=== PATIENT | female | born 1990 | race Caucasian/White ===

== ENCOUNTER 2022-03-26 07:47 | Outpatient (CLI) | payer OTHER, SELFPAY ==
[2022-03-26 14:24] LABS: Chlamydia DNA Amplified* NOT DETECTED (No Detected); GC DNA Amplified* NOT DETECTED (No Detected)
== END 2022-03-26 07:48 | disposition home or self-care (01) ==
PROVIDERS: PCP Nurse Practitioner Family; Visit Provider Family Medicine
DX: R30.0 Dysuria (principal); R39.89 Other symptoms and signs involving the genitourinary system; N89.8 Other specified noninflammatory disorders of vagina
CPT/HCPCS: 87086; 87491; 87591

== ENCOUNTER 2022-05-09 08:35 | Outpatient (CLI) | payer OTHER, SELFPAY ==
--- OUTSIDE RECORDS SUMMARY | 2022-05-09 08:37 | XMS_ITS | Encounter Summary ---
:1990 Author Organization [email or web address] [employer] [facility] Address [address] [address] Phone Care Team Providers Name Role Phone Unavailable Primary Care Provider Unavailable Reason for Visit Reason Comments UTI Reoccurring UTI this episode started this AM dysuria, frequency. Has used Macrobid and bactrim in the past and gets nauseated would like Zofran along with antibiotic. Encounter Details Date Type Department Care Team Description 04/27/2022 [facility]stitis without hematuria (Primary Dx); [facility] Loyda Katz APRN, S ymptoms of urinary tract infection [facility] [address] [address] [place] [address] [place] [address] [phone] (Wo rk) Social History Tobacco Use Types Packs/Day Years Used Date Never Smoker Smokeless Tobacco: Never Used Sex Assigned at Date Recorded Not on file Job Start Date Occupation Industry Not on file Not on file Not on file COVID-19 Exposure Response Date Recorded In the last 10 days, have you been in contact with No / Unsu re 04/27/2022 1:51 PM CDT someone who was confirmed or suspected to have Coronavirus/COVID-19? documented as of this encounter Last Filed Vital Signs Vital Sign Reading Time Taken Comments Blood Pressure 110/73 04/27/2022 3:27 PM CDT Pulse 105 04/27/2022 3:27 PM CDT Temperature 37.4 ??C (99.4 ??F) 04/27/2022 3:27 PM CDT Respiratory Rate 18 04/27/2022 3:27 PM CDT Oxygen Saturation 97% 04/27/2022 3:27 PM CDT Inhaled Oxygen Concentration - - Weight 54.3 kg (119 lb 11.4 oz) 04/27/2022 3:27 PM CDT Height - - Body Mass Index - - documented in this encounter Ordered Prescriptions Prescription Sig Dispensed Refills Start Date End Date ondansetron (Zofran ODT) 4 Take 1 Tablet by 12 Tablet 0 10/2021 MG disintegrating tablet mouth every eight hours as needed for Nausea. nitrofurantoin, Take 1 Capsule by 14 Capsule 0 04/27/2022 macrocrystal-monohydrate, mouth two times a (Macrobid) 100 MG capsule day (breakfast and supper) for 7 days. Take with food or milk. ondansetron (Zofran ODT) 4 Take 1 Tablet by 12 Tablet 0 10/202104/27/2022 MG disintegrating tablet mouth every eight hours as needed for Nausea. nitrofurantoin, Take 1 Capsule by 14 Capsule 0 04/27/2022 macrocrystal-monohydrate, mouth two times a (Macrobid) 100 MG capsule day (breakfast and supper) for 7 days. Take with food or milk. documented in this encounter Progress Notes Loyda Kraus APRN, LINDA - 04/27/2022 2:00 PM CDT S: Shauna Higginbotham is a 31 year old female who presents to urgent care with concern for UTI. Patienthas had urgency, frequency and pain with urination for 1 day(s) and getting worse. Denies fever, nausea, vomiting, back pain or bloody urine. No LMP recorded. (Menstrual status: Medication).. Patient is not currently . denies concerns or symptoms of STD's. denies vaginal infection symptoms. There is history of frequent UTIs. Patient has not been treated with antibiotics recently. Has tried the following remedies: none. patient states she gets nausea with antibiotics and requests rxfor zofran to take with antibiotics. History reviewed. No pertinent past medical history. Social History Tobacco Use ??? Smoking status: Never Smoker ??? Smokeless tobacco: Never Used Substance Use Topics ??? Alcohol use: Not on file No family history on file. Pertinent review of systems done and negative except for HPI. O: Vitals: 04/27/22 1527 BP: 110/73 Pulse: 105 Temp: 37.4 ??C (99.4 ??F) TempSrc: Tympanic Resp: 18 Weight: 119 lb 11.4 oz (54.3 kg) SpO2: 97% General: WDWN, alert and oriented, NAD. Responds to questions appropriately. Skin: color pink, skin warm and dry. There are no visible rashes. Hydration: mucus membranes pink and moist, skin turgor normal GI: Flat, soft with no apparent tenderness, hepatosplenomegaly or palpable masses and BS normal : No CVA tenderness UA: See lab tab (N30.00) Acute cystitis without hematuria (primary encounter diagnosis) (R39.9) Symptoms of urinary tract infection Plan: URINALYSIS, REFLEX TO CULTURE, URINALYSIS, REFLEX TO CULTURE, URINE MICROSCOPIC EXAMINATION, CULTURE, URINE Recent Results (from the past 12 hour(s)) URINALYSIS, REFLEX TO CULTURE Specimen: Urine CVMS Result Value Ref Range Urine Color Yessica Straw, Yellow, Yessica Urine Appearance Cloudy (A) Clear Urine Specific [place] 1.020 1.003 - 1.035 Urine pH 8.5 (A) 5.0 - 8.0 Urine Glucose Negative Negative Urine Ketones 40 (A) Negative Urine Protein 30 (A) Negative, Trace mg/dL Urine Nitrites Negative Negative Urine Leukocyte Esterase Small (A) Negative URINE MICROSCOPIC EXAMINATION Result Value Ref Range Urine WBC's 20-30 (A) 0 - 8 /HPF Urine RBC's 100+ (A) 0 - 3 /HPF Urine Bacteria Occasional (A) None Seen /HPF Urine Squamous Epithelial Cells Rare /HPF Narrative Urine Culture has been ordered. 1. Instructed patient to increase fluid intake to 80 oz per day 2. AZO over the counter three times per day, or pyridium 200 mg three times per day (prescription) for three days as needed for pain-this will cause urine to turn orange. 3. Macrobid 100 mg orally twice daily for 7 days for infection. Will call in 2 days if we need to change antibiotics based on urine culture results 4. If any fever, back pain, n/v, worsening symptoms patient agrees to seek immediate medical attn. Otherwise will fu as needed. 5. zofran 4 mg every 8 hours as needed for nausea and vomiting documented in this encounter Plan of Treatment Not on filedocumented as of this encounter Procedures Procedure Name Priority Date/Time Associated Comments Diagnosis CULTURE, URINE Routine 04/27/2022 3:16 PM Symptoms of urinary Results for this CDT tract infection procedure ar e in the results section. URINE MICROSCOPIC Routine 04/27/2022 3:16 PM Symptoms of urina ry Results for this EXAMINATION CDT tract infection procedure ar e in the results section. URINALYSIS, REFLEX TO Routine 04/27/2022 3:16 PM Symptoms of u rinary Results for this CULTURE CDT tract infection procedure ar e in the results section. 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 [place] [address] (ABNORMAL) URINE MICROSCOPIC EXAMINATION (04/27/2022 3:16 PM CDT) [facility] Method Time Signature Urine WBC's 20-30 (A) 0 - 8 04/27/[address] /HPF 3:48 PM CDT [facility] Urine RBC's 100+ (A) 0 - 3 04/27/[address] /HPF 3:48 PM CDT [facility] Urine Bacteria Occasional (A) None Seen 04/27/[address] /HPF 3:48 PM CDT [facility] Urine Squamous Rare /HPF 04/27/[address] Epithelial 3:48 PM CDT [facility] Specimen Anatomical Collection Method Collection Time Receive d Time (Source) Location / / Volume Laterality Urine AIRCRAFT SKIN BURNISHER Non-blood 04/27/2022 3:16 PM 04/27/20 3:25 MID-STREAM URINE collection / CDT PM CDT SPECIMEN OBTAINED Unknown BY CLEAN CATCH PROCEDURE / Unknown Narrative [facility] RY - 04/27/2022 3:48 PM CDT Urine Culture has been ordered. Loyda Kraus APRN, CNP [facility] URINE ORDERABLES Performing Organization Address City/State/ZIP Code Phon e Number [facility] [address] [place], [place] [address] LABORATORY (ABNORMAL) URINALYSIS, REFLEX TO CULTURE (04/27/2022 3:16 PM CDT) [facility] Method Time Signature Urine Color Yessica Straw, 04/27/2022 ST. Yellow, 3:48 PM CDT [facility] Yessica [facility]OR[facility]ORY Urine Cloudy (A) Clear 04/27/2022 ST. Appearance 3:48 PM T [facility] Urine Specific 1.020 1.003 - 04/27/2022 ST[address] [place] 1.035 3:48 PM [facility] Urine pH 8.5 (A) 5.0 - 8.0 04/27/2022 ST. 3:48 PM T [facility] Urine Glucose Negative Negative 04/27/2022 ST. 3:48 PM [facility] Urine Ketones 40 (A) Negative 04/27/2022 ST. 3:48 PM CDT [facility] Urine Protein 30 (A) Negative, 04/27/2022 ST. Trace mg/dL 3:48 PM CDT [facility] Urine Nitrites Negative Negative 04/27/2022 ST. 3:48 PM T [facility] Urine Small (A) Negative 04/27/2022 ST. Leukocyte 3:48 PM T [facility] Esterase [facility] LABORATORY Specimen Anatomical Collection Method Collection Time Receive d Time (Source) Location / / Volume Laterality Urine AIRCRAFT SKIN BURNISHER Non-blood 04/27/2022 3:16 PM 04/27/20 22 3:25 MID-STREAM URINE collection / CDT PM CDT SPECIMEN OBTAINED Unknown BY CLEAN CATCH PROCEDURE / Unknown Loyda Kraus APRN, CNP [facility] URINE ORDERABLES Performing Organization Address City/State/ZIP Code Phon e Number [facility] [address] [place] [address] LABORATORY documented in this encounter Visit Diagnoses Diagnosis Acute cystitis without hematuria - Prima ry Acute cystitis Symptoms of urinary tract infection documented in this encounter Discontinued Medications Medication Sig Discontinue Reason Start Date End Date nitrofurantoin, Take 1 Capsule by Reorder 04/27/2022 022 macrocrystal-monohydrate, mouth two times a (Macrobid) 100 MG capsule day (breakfast and supper) for 7 days. Take with food or milk. ondansetron (Zofran ODT) 4 Take 1 Tablet by Reorder 04/27/2022 04/27/2022 MG disintegrating tablet mouth every eight hours as needed for Nausea. documented as of this encounter
--- OUTSIDE RECORDS SUMMARY | 2022-05-09 08:37 | XMS_ITS | Clinical Summary ---
:1990 Author Organization [facility] [place] [address] Care Team Providers Name Role Phone Dominga Kemp Primary Care Provider [phone] Allergies No known active allergies Medications Medication Sig Dispensed Refills Start Date End Date Status metroNIDAZOLE 0.75% Insert 1 1 Tube 0 01/17/2016 Active vaginal (METROGEL Applicatorful into VAGINAL) 0.75 % the vagina at vaginal bedtime. gelIndications: Bacterial vaginitis sertraline (ZOLOFT) TAKE 1 TABLET BY 15 tablet 0 05/09/2016 Active 100 mg MOUTH ONCE DAILY. tabletIndications: Depression with anxiety OLIVIA, 28, 3-0.02 TAKE ONE TABLET BY 84 tablet 0 03/16/2017 Active mg MOUTH ONE TIME DAILY tabletIndications: Irregular menstrual cycle Active Problems Problem Noted Date Irregular menstrual cycle 06/29/2014 Depression with anxiety 05/22/2012 Other acne 05/22/2012 Immunizations Name Administration Dates Next Due Human Papilloma Virus Vaccine 10/26/2008, 03/16/2008, 2007 Influenza, IIV3 (Age >=3 years) 05/22/2012 Influenza, IIV4 06/29/2014 Tdap 11/19/2012, 06/29/2003 Family History Medical History Relation Name Comments Other Brother brain injury Psychiatric illness Brother OCD, depress ion, eating disorder Asthma Father Stroke Father Cancer-colon Maternal Grandfather 1 Hyperlipidemia Maternal Grandfather 2 Hyperlipidemia Maternal Grandmother Psychiatric illness Mother depression Diabetes Other maternal great g randma Cancer-breast No Family History Heart Disease No Family History Relation Name Status Comments Brother Father Maternal Grandfather 1 Maternal Grandfather 2 Maternal Grandmother Mother Other Social History Tobacco Use Types Packs/Day Years Used Date Never Smoker Smokeless Tobacco: Never Used Tobacco Cessation: Counseling Given: Yes Alcohol Use Standard Drinks/Week Comments Yes 0 (1 standard drink = 0.6 oz pure alcoho l) once a month Alcohol Habits Answer Date Recorded How often do you have a drink containing alcohol? Not asked How many drinks containing alcohol do you have on a Not aske d typical day when you are drinking? How often do you have six or more drinks on one occasion? No t asked Comment: once a month 06/29/2014 Sex Assigned at Date Recorded Not on file Obstetrics History Para Term AB IAB SAB Ectopic Multiple Living Live Births 0 0 0 0 0 0 0 0 0 0 Last Filed Vital Signs Vital Sign Reading Time Taken Comments Blood Pressure 109/74 01/17/2016 8:12 AM CDT tower Pulse 82 01/17/2016 8:12 AM CDT Temperature 36.7 ??C (98 ??F) 01/17/2016 8:12 AM CDT Respiratory Rate 18 02/09/2015 3:07 PM CDT Oxygen Saturation 100% 01/17/2016 8:12 AM CDT Inhaled Oxygen Concentration - - Weight 60.8 kg (134 lb) 01/17/2016 8:12 AM CDT Height 164 cm (5' 4.57) 01/17/2016 8:12 AM CDT Body Mass Index 22.6 01/17/2016 8:12 AM CDT Plan of Treatment Health Maintenance Due Date Last Done Comments COVID-19 vaccine series (#1) 06/27/1991 Hepatitis C screening for age 0512/25/2008 18-79 BMI (ht and wt on same day) for 01/16/2017 01/17/2016, 03/2016 age 18+ Depression screening for age 12+ 01/16/2017 01/17/2016, Influenza for age 9-49 04/25/2022 06/29/2014, 05/22/2012 Tetanus booster 11/19/2022 11/19/2012, 06/29/2003, 06/29/2003 Pap test for age 21-65 09/11/2024 09/11/2021, 09/11/2021, 01/30/2017, Additional history exists Tdap Completed 11/19/2012, 06/29/2003 Results Not on filefrom Last 3 Months Insurance Payer Benefit Plan / Subscriber ID Effective Dates Phone Addre ss Type Group BLUE [employer]OSS [employer] OF [id number] 2015-Present [address] [place] [address] [facility] [facility] Employ[facility] 08/25/2000 ATTN: [facility] (Home) [place] [address] [facility] [place] [address] Care Teams Counter Weigher Relationship Specialty Start Date End Date Dominga Kemp PA PCP - General Family Practice 06/27/[address] [place] [address]
--- OUTSIDE RECORDS SUMMARY | 2022-05-09 08:37 | XMS_ITS | Encounter Summary ---
:1990 Author Organization [employer] Address [address] [address] Phone Care Team Providers Name Role Phone Unavailable Primary Care Provider Unavailable Encounter Details Date Type Department Care Team Description 04/27/2022 Travel Social History Tobacco Use Types Packs/Day Years [...] have Coronavirus/COVID-19? documented as of this encounter Plan of Treatment Not on filedocumented as of this encounter Visit Diagnoses Not on filedocumented in this encounter
[2022-05-09 15:31] LABS: Chlamydia DNA Amplified* Not Detected (No Detected); GC DNA Amplified* Not Detected (No Detected)
== END 2022-05-09 08:36 | disposition home or self-care (01) ==
PROVIDERS: PCP Nurse Practitioner Family; Visit Provider Nurse Practitioner Family
DX: J02.9 Acute pharyngitis, unspecified (principal); N93.8 Other specified abnormal uterine and vaginal bleeding
CPT/HCPCS: 87070; 87491; 87591

== ENCOUNTER 2022-09-19 15:44 | Outpatient (CLI) | payer OTHER, SELFPAY ==
[2022-09-19 21:48] LABS: Basophils Absolute Auto 0.03 K/uL (0.00-0.30); Basophils Percent Auto 0.6 % (0.0-3.0); Eosinophils Absolute Auto 0.04 K/uL (0.00-0.50); Eosinophils Percent Auto 0.8 % (0.0-7.0); Hematocrit 40.9 % (33.0-51.0); Hemoglobin* 13.4 gm/dL (12.0-16.0); Mean Corpuscular HGB Conc 33 gm/dL (32-36); Mean Corpuscular Hemoglobin 29 pg (26-34); Mean Corpuscular Volume 88 fL (80-100); Neutrophils Percent Auto 33.6 % (42.0-72.0); Platelet Count* 253 K/uL (140-440); RDW Coefficient of Variation % 12.2 % (11.5-15.5); Red Blood Count 4.64 m/uL (4.00-5.20); White Blood Count* 4.98 K/uL (4.50-11.00)
[2022-09-19 21:58] LABS: Slide Review Reflex No
== END 2022-09-19 15:45 | disposition home or self-care (01) ==
PROVIDERS: PCP Nurse Practitioner Family; Visit Provider Nurse Practitioner Family
DX: R10.9 Unspecified abdominal pain (principal)
CPT/HCPCS: 85025; 87086

== ENCOUNTER 2022-09-30 18:06 | Emergency (ER) | payer OTHER, SELFPAY ==
[2022-09-30 18:20] VITALS: BP 109/75; PULSE 120; RESP 16; TEMP 36.7; O2SAT 93; BMI 20.9
--- NOTE | 2022-09-30 19:57 | ED_ITS ---
HPI - Extremity Injury (Upper) General Chief Complaint: Extremity Pain/Injury, Upper Stated Complaint: Infection in right hand Time Seen by Provider: 09/30/22 18:26 History of Present Illness HPI narrative: This 31-year-old female comes in with an injury to her right thenar muscle. She was presenting to urgent care and was sent here because of some redness around this area. She accidentally stabbed into her right thumb yesterday with a Anthony screwdriver. She received a tetanus shot. She is currently on cefdinir for recurrent strep infections. She states that her sore throat is improved but still has some pain. She reports upset stomach with taking this medicine. She reports that she has been on antibiotics several times over the past year to treat strep infection and urinary tract infections. She did see a sustainable agriculture specialist to prescribe cefdinir for 3 weeks and states that he will take her tonsils out if she would like this done. She has a puncture wound on the palmar aspect of the muscle in her right thumb. There is no sign of drainage. She does have some erythema extending around the area of the thenar muscle on both the palmar and dorsal aspect. There is some very faint redness that is extending up toward her wrist. This was what was generating a concern and recommendation to come here for further evaluation and treatment. Related Data Home Medications Medication Instructions Recorded Confirmed cefdinir 300 mg capsule 600 mg PO 09/19/22 09/19/22 Previous Rx's Medication Instructions Recorded drospirenone 3 mg-ethinyl 1 tab PO QDAY 90 days #84 tabs 03/14/22 estradiol 0.02 mg tablet (EBONY (28)) sulfamethoxazole 800 1 tab PO BID #20 tabs 09/30/22 mg-trimethoprim 160 mg tablet (Bactrim DS) Allergies Allergy/AdvReac Type Severity Reaction Status Date / Time citalopram Allergy Mild Nausea Verified 09/30/22 17:16 Review of Systems Status of ROS: Reports: 10 or more systems reviewed and unremarkable except as noted in History and below Narrative: Constitutional: No fevers, no weight gain or loss. Eyes: No discharge. No vision changes. HENT: No congestion, no ear pain. Sore throat is described above. Cardiovascular: No chest pain, no palpitations. Respiratory: No shortness of breath, no wheezes, no cough. Gastrointestinal: No abdominal pain, no vomiting, no diarrhea. Genitourinary: No dysuria, no hematuria. Musculoskeletal: Normal range of motion. Right thumb injury as described above. Skin: No rashes, no pruritis. Neurological: No dizziness, weakness, sensory change, speech change. Endo/Heme/Allergies: No bruising or bleeding. No polydipsia. Pysch: no suicidality, no anxiety, no insomnia. All other systems reviewed and are negative. 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 HEENT: Normocephalic, atraumatic. Neck: Normal range of motion. Nontender. Supple. Heart: Regular. No murmurs. Normal rate. Intact distal pulses. Lungs: Clear to auscultation. No chest discomfort. No wheezes, rhonchi, or rales. Abdomen: Normal bowel sounds. Nontender. No rebound tenderness. Genitalia: Deferred. Back: No midline tenderness. Normal range of motion. Extremities: Normal range of motion. Puncture wound on the palmar aspect of the right thenar muscle. There is no drainage. There is some surrounding erythema approximately 6 cm in diameter. Skin: Intact. No rash. Warm. No erythema or pallor. Neurologic: No altered sensation. No weakness. Alert and oriented. Psychiatric: No suicidality. No anxiety or depression. No insomnia. Nursing notes and vitals signs are reviewed. Const: Vital Signs, click to edit/add: Vital Signs - 24 hr 09/30/22 18:20 Temperature 98.1 F Pulse Rate [Pulse Oximeter] 120 H Respiratory Rate 16 Blood Pressure [Ri ght Upper Arm] 109/75 Pulse Oximetry 93 Oxygen Delivery Me thod Room Air Course Vital Signs Vital signs: Initial Vital Signs Temperature 98.1 F 09/30/22 18:20 Temperature Source Temporal Artery Scan 09/30/22 18:20 Pulse Rate 120 H 09/30/22 18:20 Pulse Rhythm 09/30/22 18:20 Pulse Strength 3+ Normal 09/30/22 18:20 Respiratory Rate 16 09/30/22 18:20 Blood Pressure 109/75 09/30/22 18:20 Blood Pressure Mean 86 09/30/22 18:20 Blood Pressure Position Sitting 09/30/22 18:20 Pulse Oximetry 93 09/30/22 18:20 Oxygen Delivery Method 09/30/22 18:20 Vital Signs Temperature 98.1 F 09/30/22 18:20 Pulse Rate 120 H 09/30/22 18:20 Respiratory Rate 16 09/30/22 18:20 Blood Pressure 109/75 09/30/22 18:20 Pulse Oximetry 93 09/30/22 18:20 Oxygen Delivery Method 09/30/22 18:20 Temperature 98.1 F 09/30/22 18:20 Pulse Rate 120 H 09/30/22 18:20 Respiratory Rate 16 09/30/22 18:20 Blood Pressure 109/75 09/30/22 18:20 Pulse Oximetry 93 09/30/22 18:20 Oxygen Delivery Method 09/30/22 18:20 MDM - Extremity Injury (Upper) MDM Narrative Medical decision making narrative: This patient has an injury to her right thumb as described above. The concern here is that she may have an infection in this wound despite being on cefdinir. I explained that there is no real test to verify this unless we were able to get fluid from the wound. I did use bedside ultrasound to evaluate for some source of drainable fluid. There was no sign of abscess in this wound. I explained to the patient that this may be her body's reaction to the injury itself and may not in fact be a sign of infection. But in abundance of caution she did have an IV established and labs were drawn. She did receive an IV dose of Levaquin. Her white count returns normal as does her C reactive protein. She has normal vital signs. She is complaining of stomach discomfort that she attributes to the antibiotic. I stated that as she has been on cefdinir now for 2 weeks she may consider discontinuing this if the adverse effects are more troubling than its benefit. She did receive a prescription for Bactrim. Between these treatments her possibility of infection in her hand should be adequately addressed. I did describe signs and symptoms that would indicate a need for return and re-evaluation. Lab Data Labs: Lab Results 09/30/22 09/30/22 Range/Units 20:00 20:00 WBC 9.09 (4.50-11.00) K/uL RBC 4.16 (4.00-5.20) m/uL Hgb 12.2 (12.0-16.0) gm/dL Hct 37.1 (33.0-51.0) % MCV 89 (80-100) fL MCH 29 (26-34) pg MCHC 33 (32-36) gm/dL RDW Coeff of Steven 12.1 (11.5-15.5) % Plt Count 241 (140-440) K/uL Neut % (Auto) 53.5 (42.0-72.0) % Lymph % (Auto) 37.7 (20-44) % [place] % (Auto) 7.4 (0.0-11.0) % Eos % (Auto) 1.1 (0.0-7.0) % Baso % (Auto) 0.3 (0.0-3.0) % Neut # (Auto) 4.86 (1.7-7.0) K/uL Lymph # (Auto) 3.43 H (0.90-2.90) K/uL [place] # (Auto) 0.70 (0.00-0.90) K/UL Eos # (Auto) 0.10 (0.00-0.50) K/uL Baso # (Auto) 0.03 (0.00-0.30) K/uL Sodium 138 (135-149) mmol/L Potassium 3.5 L (3.6-5.1) mmol/L Chloride 106 (96-114) mmol/L Carbon Dioxide 25 (20-32) mmol/L BUN 10 (5-24) mg/dL Creatinine 0.6 (0.5-1.5) mg/dL Estimated Creat Clear 117.31 Estimated GFR 123 ml/min Glucose 83 (60-115) mg/dL Calcium 8.9 (8.4-10.6) mg/dL C-Reactive Protein < 0.5 L (0.5-1.0) mg/dL Discharge Plan Discharge Clinical Impression: Puncture wound of hand Patient Disposition: Home, Self-Care Condition: Stable Additional Instructions: Take medication as prescribed. Follow up with MD as needed or scheduled. Return if worsening symptoms happen. Prescriptions: New sulfamethoxazole-trimethoprim [Bactrim DS] 800-160 mg tablet 1 tab PO BID Qty: 20 0RF No Action cefdinir 300 mg capsule 600 mg PO drospirenone-ethinyl estradiol [EBONY (28)] 3-0.02 mg tablet 1 tab PO QDAY 90 Days Qty: 84 3RF Follow Up/Referrals: Loyda Ferrer, AUDIE, [facility] [Primary Care Provider] - Stand Alone Forms: vSocial Info Instructions
[2022-09-30 20:17] LABS: Basophils Absolute Auto 0.03 K/uL (0.00-0.30); Basophils Percent Auto 0.3 % (0.0-3.0); Eosinophils Percent Auto 1.1 % (0.0-7.0); Hematocrit 37.1 % (33.0-51.0); Hemoglobin* 12.2 gm/dL (12.0-16.0); Lymphocytes Absolute Auto 3.43 K/uL (0.90-2.90); Lymphocytes Percent Auto 37.7 % (20-44); Mean Corpuscular HGB Conc 33 gm/dL (32-36); Mean Corpuscular Hemoglobin 29 pg (26-34); Mean Corpuscular Volume 89 fL (80-100); Monocytes Percent Auto 7.4 % (0.0-11.0); Neutrophils Absolute Auto 4.86 K/uL (1.7-7.0); Neutrophils Percent Auto 53.5 % (42.0-72.0); Platelet Count* 241 K/uL (140-440); RDW Coefficient of Variation % 12.1 % (11.5-15.5); Red Blood Count 4.16 m/uL (4.00-5.20); Slide Review Reflex No; White Blood Count* 9.09 K/uL (4.50-11.00)
[2022-09-30 20:22] LABS: Chloride* 106 mmol/L (96-114)
[2022-09-30 20:23] LABS: Potassium* 3.5 mmol/L (3.6-5.1); Sodium* 138 mmol/L (135-149)
[2022-09-30 20:25] LABS: Creatinine* 0.6 mg/dL (0.5-1.5); Est. Creatinine Clearance* 117.31; Estimated Glomerular Filt Rate 123 ml/min
[2022-09-30 20:26] LABS: Blood Urea Nitrogen* 10 mg/dL (5-24); Carbon Dioxide* 25 mmol/L (20-32)
[2022-09-30 20:27] LABS: Calcium* 8.9 mg/dL (8.4-10.6); Glucose* 83 mg/dL (60-115)
[2022-09-30 20:30] LABS: C Reactive Protein* < 0.5 mg/dL (0.5-1.0)
[2022-09-30 21:07] VITALS: BP 112/69; PULSE 87; RESP 16
[2022-09-30 21:19] LABS: Erythrocyte SedimentationRate* 11 mm/hr (2-20)
[2022-10-05 11:02] LABS: CDIFFEPI 027 PRESUMPTIVE NEGATIVE (Negative)
[2022-10-05 11:44] LABS: C.Difficile POSITIVE (Negative)
== END 2022-09-30 21:10 | disposition home or self-care (01) ==
PROVIDERS: Emergency Provider Emergency Medicine Emergency Medical Services; PCP Nurse Practitioner Family
DX: S61.031A Puncture wound without foreign body of right thumb without damage to nail, initial encounter (principal); W27.0XXA Contact with workbench tool, initial encounter
CPT/HCPCS: 36415; 80048; 85025; 85651; 86140; 87493; 96374; 99283; 99284; J1956

== ENCOUNTER 2022-10-24 16:03 | Outpatient (CLI) | payer OTHER, SELFPAY ==
[2022-10-24 21:16] LABS: C.Difficile Negative (Negative); CDIFFEPI 027 PRESUMPTIVE NEGATIVE (Negative)
[2022-10-25 13:31] LABS: Strep A DNA Probe* NOT DETECTED (Not Detectd)
== END 2022-10-24 16:04 | disposition home or self-care (01) ==
PROVIDERS: PCP Nurse Practitioner Family; Visit Provider Nurse Practitioner Family
DX: J02.9 Acute pharyngitis, unspecified (principal); A04.72 Enterocolitis due to Clostridium difficile, not specified as recurrent
CPT/HCPCS: 87493; 87651

== ENCOUNTER 2022-11-05 15:14 | Outpatient (CLI) | payer OTHER, SELFPAY | END 2022-11-05 15:15 | disposition home or self-care (01) | PROVIDERS: PCP Nurse Practitioner Family; Visit Provider Nurse Practitioner Family | DX: R35.0 Frequency of micturition (principal) | CPT/HCPCS: 87086 ==

== ENCOUNTER 2022-12-10 07:11 | Emergency (ER) | payer OTHER, SELFPAY ==
[2022-12-10] VITALS (15 sets, daily range): BP systolic 90–107; BP diastolic 57–77; PULSE 94–109; RESP 20; TEMP 37.2; O2SAT 97–100; BMI 20.9
[2022-12-10] MEDS: 0.9 % SODIUM CHLORIDE 1000 ml 1,000 ML IV ×2 (07:50→10:00)
--- NOTE | 2022-12-10 08:00 | ED.NURSE ---
feels very dry and nauseated. iv was started in lac, #20. 0745. 1000 ns started. father at bs. has cramping type pain.
[2022-12-10] MEDS: ONDANSETRON 2 MG/ML inj 4 MG IVP (08:37)
[2022-12-10] MEDS: KETOROLAC 30 MG/ML inj 15 MG IVP (08:46)
[2022-12-10 08:49] LABS: Lactate* 1.9 mmol/L (0.5-1.9)
[2022-12-10 08:56] LABS: Basophils Absolute Auto 0.02 K/uL (0.00-0.30); Basophils Percent Auto 0.3 % (0.0-3.0); Eosinophils Absolute Auto 0.02 K/uL (0.00-0.50); Eosinophils Percent Auto 0.3 % (0.0-7.0); Hematocrit 44.7 % (33.0-51.0); Hemoglobin* 15.1 gm/dL (12.0-16.0); Immature Granulocytes Abs Auto 0.06 K/uL (0.00-0.30); Immature Granulocytes Pct Auto 0.9 %; Lymphocytes Percent Auto 4.3 % (20-44); Mean Corpuscular HGB Conc 34 gm/dL (32-36); Mean Corpuscular Hemoglobin 29 pg (26-34); Mean Corpuscular Volume 87 fL (80-100); Monocytes Percent Auto 2.4 % (0.0-11.0); Neutrophils Percent Auto 91.8 % (42.0-72.0); Platelet Count* 226 K/uL (140-440); RDW Coefficient of Variation % 11.7 % (11.5-15.5); Red Blood Count 5.15 m/uL (4.00-5.20); White Blood Count* 6.71 K/uL (4.50-11.00)
[2022-12-10 09:08] LABS: Slide Review Reflex No
[2022-12-10 09:21] LABS: Albumin* 4.3 g/dL (3.3-5.0); Chloride* 107 mmol/L (96-114)
[2022-12-10 09:22] LABS: Sodium* 137 mmol/L (135-149)
[2022-12-10 09:24] LABS: Amylase* 100 U/L (18-89); Creatinine* 0.6 mg/dL (0.5-1.5); Est. Creatinine Clearance* 117.31; Estimated Glomerular Filt Rate 123 ml/min
[2022-12-10 09:25] LABS: Alkaline Phosphatase* 41 U/L (40-150); Aspartate Amino Transferase* 29 U/L (12-35); Bilirubin Direct* 0.2 mg/dL (0.0-0.5); Bilirubin Total* 0.9 mg/dL (0.1-1.5); Blood Urea Nitrogen* 9 mg/dL (5-24); Calcium* 9.1 mg/dL (8.4-10.6); Carbon Dioxide* 25 mmol/L (20-32); Glucose* 103 mg/dL (60-115); Lipase* 90 U/L (23-300); Total Protein* 7.7 g/dL (6.0-8.3)
[2022-12-10 09:26] LABS: Alanine Aminotransferase* 21 U/L (4-35)
[2022-12-10 09:28] LABS: Ethanol* < 0.01 % (0.01-0.03)
[2022-12-10 09:33] LABS: PCR FLU A Negative PCR FLU A (Negative); PCR FLU B Negative PCR FLU B (Negative); PCR RSV Negative PCR RSV (Negative)
[2022-12-10 09:40] LABS: SARS PCR* Negative SARS-CoV-2 (Negative)
--- NOTE | 2022-12-10 09:58 | ED_ITS ---
HPI - Abdominal Pain General Date Seen: 12/10/22 Chief Complaint: Abdominal Pain Stated Complaint: vomiting, chills, abdominal pain Time Seen by Provider: 12/10/22 07:46 Source: patient and family Mode of arrival: ambulatory Limitations: no limitations History of Present Illness HPI narrative: Patient is a 31-year-old female presents here with nausea vomiting and diarrhea, this is been for the last 6 hours, came on overnight, associated with cramping, not related to anything she ate, she has been struggling with C diff, recently had a negative test, has not been on antibiotics recently, but the cause of the C diff is thought to be for extended antibiotics that she was on for strep throat. 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 She has had no fevers or chills or sweats, there is no recent travel history, she denies any blood in her you a vomitus, or in her stool. Followed by Michael Ferrer Related Data Patient : No Previous Rx's Medication Instructions Recorded drospirenone 3 mg-ethinyl 1 tab PO QDAY 90 days #84 tabs 03/14/22 estradiol 0.02 mg tablet (EBONY (28)) docusate sodium 100 mg capsule 100 mg PO QDAY 90 days #90 caps 11/28/22 (Colace) Allergies Allergy/AdvReac Type Severity Reaction Status Date / Time citalopram Allergy Mild Nausea Verified 12/10/22 07:31 Review of Systems Status of ROS Reports: 10 or more systems reviewed and unremarkable except as noted in History and below PFSH PFS Medical History Acne ?L70.9 - Acne, unspecified (ICD-10) C. 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 Patient is speaking normally, no problem with slurring words, oriented x3. Head eyes ears nose and throat exam show equal pupils, no scleral icterus, extraocular muscles are normal, no facial droop, speech is normal, trachea normal and midline. Thyroid normal midline palpable not enlarged. Chest shows symmetrical rise bilaterally, normal auscultation with no wheezes, no increased work of breathing, no overt bruising or lesions seen, no tenderness is noted on auscultation. Heart sounds normal with no S3-S4 no murmurs clicks or gallops. Abdomen shows no obvious masses or hepatosplenomegaly, no organomegaly, bowel sounds are normal in all quadrants. Mild tenderness is noted also in all quadrants. Upper and lower extremities show normal power, normal range of motion, pulses are normal, sensations normal, fine motor movements are normal, pelvis is stable to rocking. Cervical spine shows normal range of motion, and palpably not tender. Thoracic spine shows normal range of motion, and palpably not tender, lumbar spine shows no tenderness to palpation percussion and is otherwise normal range of motion. Skin shows no rashes, petechiae or eccymosis. Const: Vital Signs, click to edit/add: Vital Signs - 24 hr 12/10/22 07:25 Temperature 98.9 F Pulse Rate [Right Pulse Oximeter] 107 H Respiratory Rate 20 Blood Pressure [Ri ght Upper Arm] 90/57 L Pulse Oximetry 99 Oxygen Delivery Me thod Room Air Course Course Hospital Course: Discussed with the patient and her father, the CT scan just showed general enteritis, no specific findings to account for her specific issues, this is unlikely to be for the last 6 weeks which she tells me she has had abdominal pain. I suspected what is happened is in the last 3-4 days things of worsening especially overnight with the diarrhea and the vomiting, she might have caught something accounting for the enteritis. Big thing here is ruling out the C difficile infection, and she was able to leave a sample here. She want to leave before the sample come back and I do not think this is unreasonable is on his we have a working phone number we can call her to put her on medications as needed. Some of her complaints make me think that there is possibly an irritable bowel or functional syndrome with this, although ruling out inflammatory bowel disease would also be appropriate. I think this is a lower likelihood with her normal white count in her CRP being normal here. She was understandably frustrated with this having no diagnosis. I think follow-up with her regular physician and strongly considering the outpatient GI consult would be appropriate here. Return here if increasing abdominal pain fevers chills nausea vomiting signs of dehydration. Is requesting something stronger for pain management I do not think this is unreasonable I did check on the [facility] and she only has 1 prescription for clonazepam. We will try some hydrocodone, did warn her however that this can cause some nausea with this. Had likely will give a positive affect with decreasing her bowel movements also. Warned of possible addiction potential with this. Vital Signs Vital signs: Initial Vital Signs Temperature 98.9 F 12/10/22 07:25 Temperature Source Temporal Artery Scan 12/10/22 07:25 Pulse Rate 107 H 12/10/22 07:25 Pulse Rhythm Regular 12/10/22 07:25 Respiratory Rate 20 12/10/22 07:25 Blood Pressure 90/57 L 12/10/22 07:25 Blood Pressure Mean 68 L 12/10/22 07:25 Blood Pressure Position Sitting 12/10/22 07:25 Pulse Oximetry 99 12/10/22 07:25 Oxygen Delivery Method Room Air 12/10/22 07:25 Vital Signs Temperature 98.9 F 12/10/22 07:25 Pulse Rate 107 H 12/10/22 07:25 Respiratory Rate 20 12/10/22 07:25 Blood Pressure 90/57 L 12/10/22 07:25 Pulse Oximetry 99 12/10/22 07:25 Oxygen Delivery Method Room Air 12/10/22 07:25 Temperature 98.9 F 12/10/22 07:25 Pulse Rate 107 H 12/10/22 07:25 Respiratory Rate 20 12/10/22 07:25 Blood Pressure 90/57 L 12/10/22 07:25 Pulse Oximetry 99 12/10/22 07:25 Oxygen Delivery Method Room Air 12/10/22 07:25 MDM - Abdominal Pain MDM Narrative Medical decision making narrative: During the evaluation of this patient I considered multiple differential diagnosis including life-threatening differentials which are appendicitis, aortic aneurysm, mesenteric ischemia, bowel perforation, ectopic , volvulus and bowel obstruction, other differential diagnosis include but are not limited to inflammatory bowel disease, cholecystitis, pancreatitis, hepatitis, gastritis, GERD, diverticulitis, peptic ulcer disease, pyelonephritis/UTI, renal colic/stone, pelvic inflammatory disease, cervicitis, endometritis, intrauterine , dysfunctional uterine bleeding, ovarian cyst/torsion, spontaneous as well as other etiologies Medical Records Attestation: I reviewed the patient's medical records. Lab Data Attestation: I reviewed the patient's lab results. Labs: Lab Results 12/10/22 12/10/22 12/10/22 Range/Units 07:45 08:48 11:18 WBC 6.71 (4.50-11.00) K/uL RBC 5.15 (4.00-5.20) m/uL Hgb 15.1 (12.0-16.0) gm/dL Hct 44.7 (33.0-51.0) % MCV 87 (80-100) fL MCH 29 (26-34) pg MCHC 34 (32-36) gm/dL RDW Coeff of Steven 11.7 (11.5-15.5) % Plt Count 226 (140-440) K/uL Neut % (Auto) 91.8 H (42.0-72.0) % Lymph % (Auto) 4.3 L (20-44) % Denali % (Auto) 2.4 (0.0-11.0) % Eos % (Auto) 0.3 (0.0-7.0) % Baso % (Auto) 0.3 (0.0-3.0) % Neut # (Auto) 6.20 (1.7-7.0) K/uL Lymph # (Auto) 0.30 L (0.90-2.90) K/uL Denali # (Auto) 0.20 (0.00-0.90) K/UL Eos # (Auto) 0.02 (0.00-0.50) K/uL Baso # (Auto) 0.02 (0.00-0.30) K/uL Sodium 137 (135-149) mmol/L Potassium 4.0 (3.6-5.1) mmol/L Chloride 107 (96-114) mmol/L Carbon Dioxide 25 (20-32) mmol/L BUN 9 (5-24) mg/dL Creatinine 0.6 (0.5-1.5) mg/dL Estimated Creat Clear 117.31 Estimated GFR 123 ml/min Glucose 103 (60-115) mg/dL Lactate 1.9 (0.5-1.9) mmol/L Calcium 9.1 (8.4-10.6) mg/dL Total Bilirubin 0.9 (0.1-1.5) mg/dL Direct Bilirubin 0.2 (0.0-0.5) mg/dL AST 29 (12-35) U/L ALT 21 (4-35) U/L Alkaline Phosphatase 41 (40-150) U/L C-Reactive Protein 1.0 (0.5-1.0) mg/dL Total Protein 7.7 (6.0-8.3) g/dL Albumin 4.3 (3.3-5.0) g/dL Amylase 100 H (18-89) U/L Lipase 90 (23-300) U/L HCG, Qual Negative (Negative) Urine Color Yellow (Yellow) Urine Appearance Clear (Clear) Urine pH 8.5 (5.0-8.5) Ur Specific Garber 1.020 (1.000-1.030) Urine Protein Negative (Negative) Urine Glucose (UA) Negative (Negative) Urine Ketones Negative (Negative) Urine Blood Negative (Negative) Urine Nitrite Negative (Negative) Urine Bilirubin Negative (Negative) Urine Urobilinogen 0.2 (0.2-1.0) Ur Leukocyte Esterase Negative (Negative) Urine RBC 0-2 (0-2) Urine WBC 0-2 (0-5) Ur Squamous Epith Cells Few (None-Few) Urine Bacteria None (None) Ethyl Alcohol < 0.01 L (0.01-0.03) % SARS-CoV-2 (PCR) Negative SARS-CoV-2 (Negative) Influenza Type A (PCR) Negative PCR FLU A (Negative) Influenza Type B (PCR) Negative PCR FLU B (Negative) RSV (PCR) Negative PCR RSV (Negative) Imaging Data CT scan - abdomen: Attestation: I have reviewed the pertinent imaging results. Radiologist's impression: Patient: RUTH BELL Facility:?[facility] Patient ID:?[id number] Site Patient ID:?[id number]. Site :?1990 Study:?CT Abdomen/Pelvis 59CC ISOVUE 370-12/10/2022 11:42:54 AM Ordering Physician:Bhanu Jimenez Final Report: INDICATION: Lower abdominal pain with nausea, vomiting and diarrhea. TECHNIQUE: CT abdomen and pelvis acquired with 59 cc Isovue 370 IV contrast. COMPARISON: None. FINDINGS: Lower chest: Unremarkable. Liver: Unremarkable. Normal in size and attenuation. No suspicious masses. Gallbladder and bile ducts: Unremarkable. No stones or inflammation. No biliary dilatation. Pancreas: Unremarkable. No mass or inflammation. Spleen: Unremarkable. Normal in size. No masses. Adrenal glands: Unremarkable. No nodules. Kidneys: Unremarkable. No suspicious masses, stones, or hydronephrosis. GI tract: Mild fluid retention throughout much of the GI tract which is otherwise normal in caliber. No mass or focal inflammation. Normal appendix. Vasculature: Abdominal aorta is normal in caliber. Mesenteric arteries are patent. Lymph nodes: No lymphadenopathy. Peritoneum/Abdominal Wall: Unremarkable. No sign of mass or infiltration. No free air or significant free fluid. Pelvis: Unremarkable. Bones: Unremarkable for age. IMPRESSION: Nonspecific mild fluid retention throughout much of the GI tract suggesting a general enteritis. No sign of obstruction. Appendix and remainder of the exam are normal. No other finding to explain abdominal pain. Please note that all CT scans at this facility use dose modulation, iterative reconstruction, and/or weight-based dosing when appropriate to reduce radiation dose to as low as reasonably achievable. Dictated by Garrison Fallon MD @ 12/10/2022 12:52:10 PM (Electronic Signature) Discharge Plan Discharge Clinical Impression: Diarrhea, Abdominal pain, Vomiting Patient Disposition: Home w/ Parent or Adult Condition: Stable Instructions: Irritable Bowel Syndrome (DC), Acute Diarrhea (ED), Abdominal Pain (ED), Nutrition Tips for Relief of Diarrhea (ED) Additional Instructions: Home rest Zofran as needed, I am sorry we could not figure out the reason for your abdominal pain. I wonder if this is more of a functional variety or possibly irritable bowel syndrome. We should rule out the C difficile infection, and we can call you after we get the results back today if it is positive, in place you back on some oral vancomycin. Zofran will be prescribed for nausea. Strongly recommended GI consult, and see if they can get to the bottom of this for you. I have put some information in the chart for notable bowel syndrome. Activity Level: No Restrictions Discharge Diet: Full Liquid Prescriptions: No Action drospirenone-ethinyl estradiol [EBONY (28)] 3-0.02 mg tablet 1 tab PO QDAY 90 Days Qty: 84 3RF docusate sodium [Colace] 100 mg capsule 100 mg PO QDAY 90 Days Qty: 90 1RF Follow Up/Referrals: Des Beaulieu MD [Staff Physician] - Loyda Ferrer APRN, CNP [Primary Care Provider] - Stand Alone Forms: [facility] Info Instructions
[2022-12-10 10:23] LABS: HCG Qualitative Serum* Negative (Negative)
--- NOTE | 2022-12-10 11:02 | CRLHL7_ITS ---
For Patients: As a result of the Century Cures Act, medical imaging exams and procedure reports are released immediately into your electronic medical record. You may view this report before your referring provider. If you have questions, please contact your health care provider. INDICATION: Lower abdominal pain with nausea, vomiting and diarrhea. TECHNIQUE: CT abdomen and pelvis acquired with 59 cc Isovue 370 IV contrast. COMPARISON: None. FINDINGS: Lower chest: Unremarkable. Liver: Unremarkable. Normal in size and attenuation. No suspicious masses. Gallbladder and bile ducts: Unremarkable. No stones or inflammation. No biliary dilatation. Pancreas: Unremarkable. No mass or inflammation. Spleen: Unremarkable. Normal in size. No masses. Adrenal glands: Unremarkable. No nodules. Kidneys: Unremarkable. No suspicious masses, stones, or hydronephrosis. GI tract: Mild fluid retention throughout much of the GI tract which is otherwise normal in caliber. No mass or focal inflammation. Normal appendix. Vasculature: Abdominal aorta is normal in caliber. Mesenteric arteries are patent. Lymph nodes: No lymphadenopathy. Peritoneum/Abdominal Wall: Unremarkable. No sign of mass or infiltration. No free air or significant free fluid. Pelvis: Unremarkable. Bones: Unremarkable for age. IMPRESSION: Nonspecific mild fluid retention throughout much of the GI tract suggesting a general enteritis. No sign of obstruction. Appendix and remainder of the exam are normal. No other finding to explain abdominal pain. Please note that all CT scans at this facility use dose modulation, iterative reconstruction, and/or weight-based dosing when appropriate to reduce radiation dose to as low as reasonably achievable. Dictated by Garrison Fallon MD @ 12/10/2022 12:52:10 PM (Electronically Signed)
[2022-12-10 11:18] LABS: Appearance Urine Clear (Clear); Bilirubin Urine Negative (Negative); Blood Urine Negative (Negative); Color Urine Yellow (Yellow); Glucose Urine Negative (Negative); Ketones Urine Negative (Negative); Leukocyte Esterase Urine Negative (Negative); Nitrite Urine Negative (Negative); Protein Urine Negative (Negative); Urobilinogen Urine 0.2 (0.2-1.0); pH Urine 8.5 (5.0-8.5)
[2022-12-10 11:24] LABS: RBC Urine 0-2 (0-2); Squamous Epithelial Cell Urine Few (None-Few); WBC Urine 0-2 (0-5)
[2022-12-10 14:51] LABS: CDIFFEPI 027 PRESUMPTIVE NEGATIVE (Negative)
[2022-12-10 15:01] LABS: C.Difficile POSITIVE (Negative)
--- NOTE | 2022-12-10 15:08 | ED.NURSE ---
Cdiff results positive, per lab. informed and Pt phone number provided for MD to call Pt.
--- NOTE | 2022-12-10 15:23 | ED.NURSE ---
Pt informed of Rx was sent to pharmacy at [facility].
== END 2022-12-10 14:10 | disposition home or self-care (01) ==
PROVIDERS: Emergency Provider Family Medicine; PCP Nurse Practitioner Family
DX: R10.9 Unspecified abdominal pain (principal); R19.7 Diarrhea, unspecified; R11.10 Vomiting, unspecified
CPT/HCPCS: 36415; 74177; 80048; 80076; 81001; 82077; 82150; 83605; 83690; 84703; 85025; 86140; 87493; 87631; 96374; 96375; 99284; J1885; J2405; J7030; Q9967

== ENCOUNTER 2024-01-30 10:58 | Outpatient (CLI) | payer OTHER, SELFPAY ==
--- OUTSIDE RECORDS SUMMARY | 2024-01-30 11:00 | XMS_ITS | Encounter Summary ---
Author Organization [facility] Address [facility] [place] [address] Care Team Providers Care Sleeping Room Cleaner Name Role Phone Outside Physician, [facility] Primary Care Provider Elina Laurent [facility] Unavailable [phone] Elina Laurent [facility] Unavailable [phone] Reason for Visit * Reason Onset Date Comments Call Back 01/30/2023 Encounter Details Date Type Department Care Team ([facility] st Contact Info) Description 01/30/2023 [facility] [address] [id number] [place] [address] Beatriz Santiago MD [address] [place] [address] [address] [place], [place] [id number] Call Back Social History Tobacco Use Types Packs/Day Years Used Date Smoking Tobacco: Never Smokeless Tobacco: Never Sex and Gender Information Value Date Recorded Sex Assigned at Not on file Gender Identity Not on file Sexual Orientation Not on file COVID-19 Exposure Response Date Recorded In the last 10 days, have yo u been in contact with someone who was confirmed or suspected to have Coronavirus/COVID-19? No / Unsure 01/01/2023 1:04 PM CDT documented as of this encounter Miscellaneous Notes * Telephone Encounter - Martha Hayedn - 01/30/2023 1:46 PM CDT Patient call for update. Has yet to receive a return call. * Telephone Encounter - Juan West - 01/30/2023 10:18 AM CDT [facility] Phone Message May a detailed message be left on voicemail: yes Reason for Call:: Shauna called wanting to know if she should stop taking her medication she missed 3 days at the begining but got right back on it, she has about 5 days left and is currently experincing dizziness and stomach pains. She feels the medication isnt realy working please contact her todiscuss Thank you Action Taken: ID Travel Screening: Not Applicable documented in this encounter Plan of Treatment Not on file documented as of this encounter Visit Diagnoses Not on filedocumented in this encounter Care Teams Sleeping Room Cleaner Relationship Specialty Start Date End Date Outside Physician, Id Lab PCP - General 12/12/22 Elina Laurent RPH [address] [place] [address] Pharmacist Pharmacist Senior Accounting Specialist 01/30/23 Elina Laurent RPH [address] [place] [id number] Assigned [place] Pharmacist 02/08/23 documented as of this encounter
--- OUTSIDE RECORDS SUMMARY | 2024-01-30 11:00 | XMS_ITS | Clinical Summary ---
Author Organization [facility] Address [address] [address] Phone Care Team Providers Care Timber Poisoner Name Role Phone Unavailable Primary Care Provider Unavailabl e Allergies No known active allergies Medications Medication Sig Dispensed Refills Start Date End Date Status ondansetron (Zofran ODT) 4 MG disintegrating tablet Take 1 Tablet by mouth every eight hours as needed for Nausea. 12 Tablet 04/27/2022 Active Active Problems No known active problems Social History Tobacco Use Types Packs/Day Years Used Date Smoking Tobacco: Never Smokeless Tobacco: Never PHQ-2 Answer Date Recorded PHQ-2 Total 0 04/27/2022 Sex and Gender Information Value Date Recorded Sex Assigned at Not on file Gender Identity Not on file Sexual Orientation Not on file Job Start Date Occupation Industry Not on file Not on file Not on file Obstetrics History Last Filed Vital Signs Vital Sign Reading Time Taken Comments Blood Pressure 110/73 04/27/2022 3:27 PM CDT Pulse 105 04/27/2022 3:27 PM CDT Temperature 37.4 ??C (99.4 ??F) 04/27/2022 3:27 PM CD T Respiratory Rate 18 04/27/2022 3:27 PM CDT Oxygen Saturation 97% 04/27/2022 3:27 PM CDT Inhaled Oxygen Concentration - - Weight 54.3 kg (119 lb 11.4 oz) 04/27/2022 3:27 PM CDT Height - - Body Mass Index - - Plan of Treatment Health Maintenance Due Date Last Done Comments Cervical Cancer Screening 1990 Last pap w/ HPV Testing 1990 Last pap w/o HPV Testing 1990 Hepatitis B Vaccine (Standin g Order) (1 of 3 - 19+ 3-dose series) 2009 PERTUSSIS (Standing Order) 2009 TETANUS (Standing Order) 2009 Influenza Vaccine Seasonal (Standing Order) (#1) 2023 HPV Vaccine (Standing Order) Aged Out No longer eligible based on patient's age to complete this topic Pneumococcal/PCV20 Vaccine: Pediatrics (2-5 yrs) and At-Risk Patients (6-64 yrs) (Standing Order) Aged Out No longer eligible b ased on patient's age to complete this topic
--- OUTSIDE RECORDS SUMMARY | 2024-01-30 11:00 | XMS_ITS | Referral Summary ---
Author Organization [facility] Address [address] [place] [address] Care Team Providers Care Driver Service Technician Name Role Phone Outside Physician, In Lab Primary Care Provider Elina Laurent [facility] Unavailable [phone] Elina Laurent [facility] Unavailable [phone] Allergies No known active allergies Medications Medication Sig Dispensed Refills Start Date End Date Status MOSES 3-0.02 MG tablet Take 1 tablet by mouth daily at 2 pm 11/21/2022 Active Sodium Hyaluronate, oral, (HYALURONIC ACID PO) Take 1 tablet by mouth daily Active Cranberry 125 MG TABS Take 1 tablet by mouth daily Active Saccharomyces boulardii (PROBIOTIC) 250 MG CAPS Take 1 capsule by mouth daily Active multivitamin w/minerals (THERA-VIT-M) tablet Take 1 tablet by mouth daily Active Social History Tobacco Use Types Packs/Day Years Used Date Smoking Tobacco: Never Smokeless Tobacco: Never Adolescent Education Answer Date Record ed Getting School Help Needed Not on file 05/17 Sex and Gender Information Value Date Recorded Sex Assigned at Not on file Gender Identity Not on file Sexual Orientation Not on file Last Filed Vital Signs Vital Sign Reading Time Taken Comments Blood Pressure 107/74 01/01/2023 1:39 PM CDT Pulse 100 01/01/2023 1:39 PM CDT Temperature - - Respiratory Rate - - Oxygen Saturation 99% 01/01/2023 1:39 PM CDT Inhaled Oxygen Concentration - - Weight 56.2 kg (124 lb) 01/01/2023 1:39 PM CDT Height - - Body Mass Index - - Plan of Treatment Not on file Care Teams Driver Service Technician Relationship Specialty Start Date End Date Outside Physician, In Lab PCP - General 12/12/22 Elina Laurent [facility] [address] [place] [address] Pharmacist Pharmacist Fund Raiser 01/30/23 Elina Laurent Shola [address] [place] [address] Assigned [place] Pharmacist 02/08/23
--- OUTSIDE RECORDS SUMMARY | 2024-01-30 11:00 | XMS_ITS | Clinical Summary ---
Author Organization [facility] Address [address] [place] [address] Care Team Providers Care Cannoneer Name Role Phone Outside Physician, [facility] Primary Care Provider Elina Laurent [facility] Unavailable [phone] Elina Laurent [facility] Unavailable Allergies No known active allergies Medications Medication [...] Health Maintenance Due Date Last Done Comments ADVANCE CARE PLANNING 1990 ANNUAL REVIEW OF HM ORDERS 1990 YEARLY PREVENTIVE VISIT 1990 HEPATITIS B IMMUNIZATION (3 of 3 - 3-dose series) 01/27/2004 12/02/2003, 06/01/2003 HIV SCREENING 2005 HEPATITIS C SCREENING 2008 PAP 12/26/2011 COVID-19 Vaccine ( season) 2023 07/26/2021, 11/01/2020, 10/04/2020 PHQ-2 (once per calendar year) 2023 INFLUENZA VACCINE (Season Ended) 2024 06/19/2022, 08/28/2021, 06/01/2020, Additional history exists DTAP/TDAP/TD IMMUNIZATION (5 - Td or Tdap) 09/30/2032 09/30/2022, 11/19/2012, 06/29/2003, Additional history exists HPV IMMUNIZATION Completed 10/26/2008, , 12/18/2007 IPV IMMUNIZATION Aged Out No longer e ligible based on patient's age to complete this topic MENINGITIS IMMUNIZATION Aged Out No l onger eligible based on patient's age to complete this topic Pneumococcal Vaccine: Pediatrics (0 to 5 Years) and At-Risk Patients (6 to 64 Years) Aged Out No longer eligible based on patient's age to complete this topic RSV MONOCLONAL ANTIBODY Aged Out No l onger eligible based on patient's age to complete this topic Care Teams Cannoneer Relationship Specialty Start Date End Date Outside Physician, [place] Lab PCP - General 12/12/22 Elina Laurent RPH [address] [place] [address] Pharmacist Pharmacist Service Desk Associate 01/30/23 Elina Laurent RPH [address] [place] [address] Assigned MTM Pharmacist 02/08/23
--- OUTSIDE RECORDS SUMMARY | 2024-01-30 11:00 | XMS_ITS | Clinical Summary ---
Author Organization [facility] Address [place], [place] [address] Care Team Providers Care Filler Shredder Name Role Phone Pcp, No Primary Care Provider Unavailabl e Allergies Active Allergy Reactions Criticality Noted Date Comments Citalopram Nausea Only Low 12/10/2022 Medications Medication Sig Dispensed Refills Start Date End Date Status GIANVI, 28, 3-0.02 mg tabletIndications:Irr egular menstrual cycle TAKE ONE TABLET BY MOUTH ONE TIME DAILY 84 tablet 03/16/2017 Active Active Problems Problem Noted Date Diagnosed Date Irregular menstrual cycle 06/29/2014 Depression with anxiety 05/22/2012 Other acne 05/22/2012 Immunizations Name Administration Dates Next Due Hepatitis B (Peds) 12/02/2003,06/01/2003 Human Papilloma Virus Vaccine 10/26/2008, 008,12/18/2007 Influenza Virus, Unspecified 06/01/2020,05/25/20 19,05/22/2012 Influenza, IIV3 (Age >=3 years) 05/22/2012 Influenza, IIV4 08/28/2021,06/29/2014 Influenza, Injectable, Mdck, Quadrivalent, W/preservative 06/19/2022 Td (Age >=7 Years) 06/01/2003 Tdap 09/30/2022,11/19/2012,06/29/2003 Family History Medical History Relation Name Comments Other Brother brain injury Psychiatric illness Brother OCD, dep ression, eating disorder Asthma Father Stroke Father Cancer-colon Maternal Grandfather 1 Hyperlipidemia Maternal Grandfather 2 Hyperlipidemia Maternal Grandmother Psychiatric illness Mother depressi on Diabetes Other maternal great grandma Cancer-breast No Family History Heart Disease No Family History Relation Name Status Comments Brother Father Maternal Grandfather 1 Maternal Grandfather 2 Maternal Grandmother Mother Other Social History Tobacco Use Types Packs/Day Years Used Date Smoking Tobacco: Never Smokeless Tobacco: Never Tobacco Cessation:Counseling Given: Yes Alcohol Use Standard Drinks/Week Comments Yes 0 (1 standard drink = 0.6 oz pur e alcohol) once a month Social Connections Answer Date Recorded Frequency of Communication with Friends and Fami ly Not on file 03/05/2023 Sex and Gender Information Value Date Recorded Sex Assigned at Not on file Gender Identity Not on file Sexual Orientation Not on file Obstetrics History Para Term AB IAB SAB Ectopic Multiple Livin g Live Births 0 0 0 0 0 0 0 0 0 0 Last Filed Vital Signs Vital Sign Reading Time Taken Comments Blood Pressure 105/73 03/05/2023 3:13 PM CDT Pulse 85 03/05/2023 3:13 PM CDT Temperature 36.7 ??C (98 ??F) 01/17/2016 8:12 AM CDT Respiratory Rate 18 02/09/2015 3:07 PM CDT Oxygen Saturation 99% 03/05/2023 3:13 PM CDT Inhaled Oxygen Concentration - - Weight 56.7 kg (125 lb) 03/05/2023 3:13 PM CDT Height 164 cm (5' 4.57) 01/17/2016 8:12 AM CDT Body Mass Index 21.08 01/17/2016 8:12 AM CDT Plan of Treatment Health Maintenance Due Date Last Done Comments HIV for age 15-65 2005 Hepatitis C screening for age 18-79 2008 BMI (ht and wt on same day) for age 18+ 01/16/2017 01/17/2016, 10/02/2015 Depression screening for age 12+ 01/16/2017 01/17/2016, 01/17/2016 COVID-19 vaccine series ( season) 2023 07/26/2021, 11/01/2020, 10/04/2020 Influenza for age 9-49 04/25/2024 2, 08/28/2021, 06/01/2020, Additional history exists Pap test for age 21-65 09/11/2024 2, 09/11/2021, 01/30/2017, Additional history exists Tetanus booster 09/30/2032 09/30/2022, 10/24, 06/29/2003, Additional history exists Tdap Completed 09/30/2022, 10/24, 06/29/2003 Pneumococcal series for age 6-64 Aged Out No longer eligible based on patient's age to complete this topic Procedures Procedure Name Priority Date/Time Associated Diagnosis Comments HPV THIN PREP Routine 09/11/2021 4:05 PM UPHOLSTERED GOODS CRAFTER from Last 3 Months or Most Recently Relevant to Health Maintenance Results * HPV HIGH RISK (09/11/2021 4:05 PM UPHOLSTERED GOODS CRAFTER) TYPE 16 Negative Negative 09/13/2021 11:07 AM UPHOLSTERED GOODS CRAFTER [facility] TYPE 18 Negative Negative 09/13/2021 11:07 AM UPHOLSTERED GOODS CRAFTER [facility] OTHER HIGH RISK TYPES Negative Negative 09/13/2021 11:07 AM UPHOLSTERED GOODS CRAFTER [facility] Other (Cervical/Vagina l) 09/11/2021 4:05 PM UPHOLSTERED GOODS CRAFTER 09/11/2021 4:05 PM UPHOLSTERED GOODS CRAFTER Narrative [facility] - 09/13/2021 11:07 AM UPHOLSTERED GOODS CRAFTER HPV types 16, 18, 31, 33, 35, 39, 45, 51, 52, 56, 58, 59, 66 and 68 DNA were undetectable or below the pre-set threshold. Methodology: Juan Vasyl 4800 HPV Test Vi Cabrales NP [facility] [address] [place] [address], [place] from Last 3 Months or Most Recently Relevant to Health Maintenance Care Teams Filler Shredder Relationship Specialty Start Date End Date Pcp, No . PCP - General 03/05/23
== END 2024-01-30 10:59 | disposition home or self-care (01) ==
PROVIDERS: PCP Nurse Practitioner Family; Visit Provider Nurse Practitioner Family
DX: Z00.00 Encounter for general adult medical examination without abnormal findings (principal); F41.9 Anxiety disorder, unspecified; Z13.21 Encounter for screening for nutritional disorder; Z13.0 Encounter for screening for diseases of the blood and blood-forming organs and certain disorders involving the immune mechanism
CPT/HCPCS: 80053; 82306; 84443; 85025

== ENCOUNTER 2024-02-01 23:54 | Emergency (ER) | payer OTHER, SELFPAY ==
[2024-02-02 00:35] VITALS: BP 116/76; PULSE 91; RESP 20; TEMP 37.1; O2SAT 98; BMI 21.8
--- NOTE | 2024-02-02 01:47 | ED.GENADULT ---
HPI - General Adult General Chief complaint: Unspecified Complaint, Adult Stated complaint: Anxiety, has not been able to sleep Time Seen by Provider: 02/02/24 00:46 Source: patient and family Mode of arrival: ambulatory Limitations: no limitations History of Present Illness HPI narrative: 33-year-old female presents to the emergency department for evaluation of insomnia. Patient does struggle with insomnia on occasion and has frequent wake ups on an ongoing basis. She reports that she started Lexapro, as advised by her primary care provider on Friday night to help treat anxiety. Since then, she has had significant anxiety. She tried taking some melatonin after several hours of tossing and turning and frequent wake ups both in the wee hours Friday morning and Friday. This did not help her sleep. She is leaving for a trip in about 10 hours and is worried about insomnia as she feels very fatigued. She did not take the Lexapro tonight, recognizing that this was likely causing the insomnia. No psychosis. No history of bipolar disorder. No suicidal thoughts. She is fatigued but notes no palpitations or signs of arrhythmia. No trauma or falls. No other physical symptoms. Denies being prescribed other sleep aids in the past for reports she has been given Klonopin for anxiety before and seems remember that it went well but it was so remote that she cannot recall many of the details. It sounds as though she was also treated with 100 mg of sertraline in the past with fairly good results other than it caused a lot of fatigue. This is her 1st time being on Lexapro. She states her past medical history is otherwise fairly benign. She has chronic constipation and is typically prescribed what sounds like 1 of the serotonin GI modulating medications. She actually held this because she was worried about an interaction with the Lexapro. I have now reassured her that it is safe to restart because both are such low doses. She is a nonsmoker, denies any recreational drugs or recreational stimulants. ROS is notable for the mental health symptoms as described above only, otherwise denies times 12 systems. Related Data Previous Rx's ?Medication ?Instructions ?Recorded drospirenone 3 mg-ethinyl 1 tab PO QDAY 90 days #84 tabs 01/30/24 estradiol 0.02 mg tablet (EBONY (28)) escitalopram oxalate 5 mg tablet 5 mg PO QDAY #30 tabs 01/30/24 (Lexapro) Allergies Allergy/AdvReac Type Severity Reaction Status Date / Time citalopram Allergy Mild Nausea Verified 01/30/24 10:21 PFSH PFS Medical History Encounter for well woman exam with routine gynecological exam ?Z01.419 - Encounter for gynecological examination (general) (routine) without abnormal findings (ICD-10) C. 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 Social drinker What is your current living situation?: I presently have a place to live Problems where you live: no known problems In the past 12 months, utilities in danger of being shut off: no In past 12 months, lack of transportation kept you from medical appts, meetings, work, or getting things needed for daily living: no In the past 12 mos, have been you worried that your food would run out before you had money to buy more?: never true In the past 12 mos, the food you bought just didn't last and you didn't have money to buy more?: never true Smoking Status: Never smoker Do you use any of these nicotine containing products: None How often do you have a drink containing alcohol: never AUDIT-C Alcohol total score: 0 Non-prescribed substance use: denies use How often does anyone, including family, friends and others, physically hurt you: never How often does anyone, including family, friends and others, insult or talk down to you: never How often does anyone, including family, friends and others, threaten you with harm: never How often does anyone, including family, friends and others, scream or curse at you: never Little interest or pleasure in doing things: several days Feeling down, depressed, or hopeless: several days service: No Exam Const: Vital Signs, click to edit/add: Vital Signs - 24 hr 02/02/24 00:35 Temperature 98.7 F Pulse Rate [Pulse Oximeter] 91 Respiratory Rate 20 Blood Pressure [Ri ght Upper Arm] 116/76 Pulse Oximetry 98 Oxygen Delivery Me thod Room Air Documenting provider has reviewed patient's vital signs: yes Common normals: no apparent distress General appearance: cooperative, comfortable and well kempt HENMT: Common normals: normocephalic Head and scalp: normocephalic Face and sinus: normal facial exam Eye: Common normals: conjunctivae normal General eye: normal appearance of both eyes Conjunctiva: conjunctiva(e) normal Resp: Common normals: normal respiratory effort, no use of accessory muscles and clear to auscultation bilaterally Effort & inspection: able to speak in complete sentences Auscultation: clear to auscultation bilaterally Cardio: Common normals: regular rate, regular rhythm, S1 normal heart sound, S2 normal heart sound and no murmurs Rate: regular rate Rhythm: regular rhythm Heart sounds: S1 normal and S2 normal Neuro: Speech: speech normal Motor exam: no tremor noted and no movement abnormalities noted Psych: Common normals: thought process normal Appearance: well kempt Attitude: engaged Activity/motor behavior: appropriate eye contact Mood and affect: euthymic mood Thought process: normal thought process Thought content: normal thought content Attention/concentration: attention grossly intact Memory/cognition: memory grossly intact Insight: insight good Judgement: judgment good Skin: Common normals: no rashes or lesions noted General skin exam: no rashes or lesions noted Course Course ED Course: Medication induced insomnia, likely secondary to Lexapro. No features of bipolar, psychosis, medical etiology, unstable vitals or other dangerous concerns. Counseled patient on options. She may be a good candidate for trazodone as she could also pick and choose when to use the medication on a p.r.n. basis and would not disrupt her sleep wave cycle as much as a benzodiazepine but we do have a worry about her getting the medication prior to leaving for her trip in the morning. Because of this she would prefer something that is available in the vending machine. We elect for Ativan. She is prescribed 0.5-1 mg at bedtime p.r.n. she will take 1 mg tonight in addition to the melatonin right away when she gets home and hold off on the Lexapro for 24 hours. She will continue on the Ativan and melatonin at bedtime again tomorrow night just to help reset her sleep cycles and then she may wean off the Ativan as needed. She may consider restarting the Lexapro 5 mg in the mornings starting on Friday or she may choose to restart it when she gets back from her trip. She will follow up with her primary care provider regarding long-term management and efficacy in 2 weeks. Alarm symptoms reviewed that would warrant ED presentation. Vital Signs Vital signs: Initial Vital Signs Temperature 98.7 F 02/02/24 00:35 Temperature Source Temporal Artery Scan 02/02/24 00:35 Pulse Rate 91 02/02/24 00:35 Pulse Rhythm Regular 02/02/24 00:35 Respiratory Rate 20 02/02/24 00:35 Blood Pressure 116/76 02/02/24 00:35 Blood Pressure Mean 89 02/02/24 00:35 Pulse Oximetry 98 02/02/24 00:35 Oxygen Delivery Method Room Air 02/02/24 00:35 Vital Signs Temperature 98.7 F 02/02/24 00:35 Pulse Rate 91 02/02/24 00:35 Respiratory Rate 20 02/02/24 00:35 Blood Pressure 116/76 02/02/24 00:35 Pulse Oximetry 98 02/02/24 00:35 Oxygen Delivery Method Room Air 02/02/24 00:35 Temperature 98.7 F 02/02/24 00:35 Pulse Rate 91 02/02/24 00:35 Respiratory Rate 20 02/02/24 00:35 Blood Pressure 116/76 02/02/24 00:35 Pulse Oximetry 98 02/02/24 00:35 Oxygen Delivery Method Room Air 02/02/24 00:35 Discharge Plan Discharge Clinical Impression: Insomnia Patient Disposition: Home w/ Parent or Adult Condition: Stable Instructions: Insomnia (ED) Additional Instructions: As we discussed, there are many options that can be used to help treat your insomnia. I do think that the Lexapro is contributing but I do think you are someone who is going to be prone to sleep problems. Long-term therapy with a medicine like trazodone may be a good fit for you and may also serve antidepressant/antianxiety properties for you long-term. As we discussed a barrier to prescribing this medication would be your ability to pick it up before you leave for your trip. Therefore instead, we have elected to prescribe Ativan. I gave you the higher dose 1 mg tablets so that you could potentially split these in half after a couple of days and get more doses out of it if needed. For now, take 1 mg at bedtime for at least the next 2 nights to help reset your sleep cycle. Remember that melatonin can be a great tool. I recommend also using 10 mg of melatonin at proper bedtime which would be around 9-11 pm. I would skip the Lexapro for today and plan to restart Friday or when you get back from your trip, I trust your judgment in this. No caffeine after 3:00 p.m. and I would recommend no more than 1 alcoholic beverage per day while you are on vacation. Follow-up with her primary care provider when you get back for updates and follow-up regarding your anxiety and insomnia. Activity Level: Activity as Tolerated Discharge Diet: Regular Prescriptions: No Action escitalopram oxalate [Lexapro] 5 mg tablet 5 mg PO QDAY Qty: 30 0RF drospirenone-ethinyl estradiol [EBONY (28)] 3-0.02 mg tablet 1 tab PO QDAY 90 Days Qty: 84 3RF Follow Up/Referrals: Loyda Ferrer, FOR[facility]ISER, [facility] [Primary Care Provider] - Stand Alone Forms: [employer] Info Instructions
--- OUTSIDE RECORDS SUMMARY | 2024-02-02 01:51 | XMS_ITS | Referral Summary ---
Author Organization [facility] Address [address] [place] [address] Care Team Providers Care Type Cutter Name Role Phone Outside Physician, [facility] Primary Care Provider Elina Laurent [facility] Unavailable [phone] Elina Laurent [facility] Unavailable [phone] Allergies No known active allergies Medications [...] of Treatment Not on file Care Teams Type Cutter Relationship Specialty Start Date End Date Outside Physician, [facility] PCP - General 12/12/22 Elina Laurent [facility] [address] [place] [address] Pharmacist Pharmacist Day Guard 01/30/23 Elina Laurent Shola [address] [place] [address] Assigned [place] Pharmacist 02/08/23
--- OUTSIDE RECORDS SUMMARY | 2024-02-02 01:51 | XMS_ITS | Clinical Summary ---
Author Organization [facility] Address [address] [place] [address] Care Team Providers Care Winter Intern Name Role Phone Outside Physician, [facility] Primary Care Provider Elina Laurent [facility] Unavailable [phone] Elina Laurent [facility] Unavailable [phone] Allergies No known active allergies Medications [...] age to complete this topic Care Teams Winter Intern Relationship Specialty Start Date End Date Outside Physician, [facility] PCP - General 12/12/22 Elina Laruent [facility] [address] [place] [address] Pharmacist Pharmacist Maintenance Director 01/30/23 Elina Laurent [facility] [address] [place] [address] Assigned MTM Pharmacist 02/08/23
--- OUTSIDE RECORDS SUMMARY | 2024-02-02 01:51 | XMS_ITS | Clinical Summary ---
Author Organization [facility] Address [address] [address] Phone Care Team Providers Care Apartment Community Assistant Manager Name Role Phone Unavailable Primary Care Provider [...]
--- OUTSIDE RECORDS SUMMARY | 2024-02-02 01:51 | XMS_ITS | Encounter Summary ---
Author Organization [facility] Address [facility] [place] [address] Care Team Providers Care Semi Automatic Sewing Machine Operator Name Role Phone Outside Physician, [facility] Primary Care Provider Elina Laurent [facility] Unavailable [phone] Elina Laurent [facility] Unavailable Reason for Visit * Reason Onset Date Comments Call Back 01/30/2023 Encounter Details Date Type Department Care Team ([facility] st Contact Info) Description 01/30/2023 [facility] [id number] [place] [address] Beatriz Santiago MD [address] [place] [address] [address] [place], [place] [address] Call Back Social History Tobacco Use Types [...] Miscellaneous Notes * Telephone Encounter - Martha Hayden - 01/30/2023 1:46 PM CDT Patient call [...] on filedocumented in this encounter Care Teams Semi Automatic Sewing Machine Operator Relationship Specialty Start Date End Date Outside Physician, [facility] PCP - General 12/12/22 Elina Laurent [facility] [address] [place] [address] Pharmacist Pharmacist Reflesher 01/30/23 Elina Laurent R[facility] [address] [place] [id number] Assigned [place] Pharmacist 02/08/23 documented as of this encounter
--- OUTSIDE RECORDS SUMMARY | 2024-02-02 01:51 | XMS_ITS | Clinical Summary ---
Author Organization [facility] Address [place], [place] [address] Care Team Providers Care Geophysical Observer Name Role Phone Pcp, No Primary Care [...] HPV THIN PREP Routine 09/11/2021 4:05 PM TRAY SERVICE WORKER from Last 3 Months or Most Recently Relevant to Health Maintenance Results * HPV HIGH RISK (09/11/2021 4:05 PM TRAY SERVICE WORKER) TYPE 16 Negative Negative 09/13/2021 11:07 AM TRAY SERVICE WORKER [facility] TYPE 18 Negative Negative 09/13/2021 11:07 AM TRAY SERVICE WORKER [facility] OTHER HIGH RISK TYPES Negative Negative 09/13/2021 11:07 AM TRAY SERVICE WORKER [facility] Other (Cervical/Vagina l) 09/11/2021 4:05 PM TRAY SERVICE WORKER 09/11/2021 4:05 PM TRAY SERVICE WORKER Narrative [facility] - 09/13/2021 11:07 AM TRAY SERVICE WORKER HPV types 16, 18, 31, 33, 35, 39, 45, 51, 52, 56, 58, 59, 66 and 68 DNA were undetectable or below the pre-set threshold. Methodology: Juan Vasyl 4800 HPV Test Vi Cabrales NP [facility] [address] [place] [address], [place] from Last 3 Months or Most Recently Relevant to Health Maintenance Care Teams Geophysical Observer Relationship Specialty Start Date End Date Pcp, No . PCP - General 03/05/23
== END 2024-02-02 02:04 | disposition home or self-care (01) ==
LOC: ED 02-02 01:50
PROVIDERS: Emergency Provider Family Medicine; PCP Nurse Practitioner Family
DX: G47.00 Insomnia, unspecified (principal)
CPT/HCPCS: 99283